=== PATIENT | male | born 1930 | race Caucasian/White ===

== ENCOUNTER 2018-12-11 13:50 | Outpatient (CLI) | payer OTHER ==
[2018-12-11] MEDS ORDERED: BARIUM SULFATE 148 GM SUSP.RECON PO ONE (15:47)
[2018-12-11] MEDS ORDERED: BARIUM SULFATE 240 ML ORAL.SUSP PO ONE (15:47)
== END 2018-12-11 23:59 | disposition home or self-care (01) ==
LOC: RAD 13:50
DX: R13.11 Dysphagia, oral phase (principal); R13.13 Dysphagia, pharyngeal phase; M46.02 Spinal enthesopathy, cervical region; M47.819 Spondylosis without myelopathy or radiculopathy, site unspecified; M43.12 Spondylolisthesis, cervical region
CPT/HCPCS: 74230; 92611